=== PATIENT | male | born 1985 ===

== ENCOUNTER 2019-08-18 13:10 | Emergency (ER) | payer SELFPAY ==
--- NOTE | 2019-08-18 13:34 | PC.NURSE ---
Pt mothers states i spoke with Mirella at [facility] and they have a bed for him and said he just needs to go through the process to get their. Mother speaking with intake nurse at [facility] and they told her to just bring him over to be see there instead of going through the process here. This RN told pt we are happy to treat him if he didn't feel comfortable driving there. Pt states he was comfortable going there instead and ambulated to the exit with mother.
== END 2019-08-18 13:22 | disposition left against medical advice (07) ==
LOC: ANHED 13:44
DX: Z53.21 Procedure and treatment not carried out due to patient leaving prior to being seen by health care provider (principal)
CPT/HCPCS: 99199